=== PATIENT | male | born 1990 | race Two or more races ===

== ENCOUNTER 2020-09-27 14:07 | Emergency (ER) | payer OTHER ==
[~2020-09-27] VITALS: Ht 180.3 cm; Wt 81.6 kg
== END 2020-09-27 16:42 | disposition home or self-care (01) ==
LOC: ER 14:07
DX: B34.9 Viral infection, unspecified (principal)

== ENCOUNTER 2020-09-27 21:41 | Emergency (ER) | payer OTHER ==
[~2020-09-27] VITALS: Ht 180.3 cm; Wt 81.6 kg
== END 2020-09-28 03:22 | disposition home or self-care (01) ==
LOC: ER 21:41
DX: R06.02 Shortness of breath (principal); R42 Dizziness and giddiness; R07.89 Other chest pain; F41.8 Other specified anxiety disorders; T70.29XA Other effects of high altitude, initial encounter; W94.11XA Exposure to residence or prolonged visit at high altitude, initial encounter; Z03.818 Encounter for observation for suspected exposure to other biological agents ruled out